=== PATIENT | female | born 1975 | race African-American/Black ===

== ENCOUNTER 2018-06-03 11:34 | Inpatient (IN) | payer OTHER ==
[2018-06-03 13:01] VITALS: BMI 21.6
--- NOTE | 2018-06-03 14:13 | HP ---
CIWA Score - CIWA Score Nausea/Vomitin-Mild Nausea/No Vomiting Muscle Tremors: 4-Moderate,w/Arms Extend Anxiety: 4-Mod. Anxious/Guarded Agitation: 4-Moderately Restless Paroxysmal Sweats: 1-Minimal Palms Moist Orientation: 0-Oriented Tacttile Disturbances: 0-None Auditory Disturbances: 0-None Visual Disturbances: 0-None Headache: 0-None Present CIWA-Ar Total Score: 14 Admission ROS BHS - HPI Chief Complaint: alcohol withdrawal sx Allergies/Adverse Reactions: Allergies Allergy/AdvReac Type Severity Reaction Status Date / Time No Known Allergies Allergy Verified 06/03/18 14:20 History of Present Illness: 43 years old female with long history of alcohol nicotine dependence has weight loss depression is admitted to detox Exam Limitations: No Limitations - Ebola screening Have you traveled outside of the country in the last 21 days: No (N) Have you had contact with anyone from an Ebola affected area: No Have you been sick,other than usual withdrawal symptoms: No Do you have a fever: No - Review of Systems Constitutional: Loss of Appetite, Changes in sleep, Unintentional Wgt. Loss, Unexplained wgt Loss EENT: reports: Blurred Vision (eye glasses) Respiratory: reports: No Symptoms reported Cardiac: reports: No Symptoms Reported GI: reports: Nausea, Poor Appetite, Poor Fluid Intake, Abdominal cramping : reports: No Symptoms Reported Musculoskeletal: reports: No Symptoms Reported Integumentary: reports: No Symptoms Reported Neuro: reports: Tremors Endocrine: reports: No Symptoms Reported Hematology: reports: No Symptoms Reported Psychiatric: reports: Judgement Intact, Orientated x3, Anxious, Depressed Other Systems: Reviewed and Negative Patient History - Patient Surgical History Past Surgical History: No - PPD History Previous Implant?: Yes Documented Results: Negative w/o proof Implanted On Prior R Admission?: No PPD to be Administered?: Yes - Reproductive History Patient is a Female of Child Bearing Age (11 -55 yrs old): Yes Last Menstrual Period: 05/20/18 Patient : No - Smoking Cessation Smoking history: Current every day smoker Have you smoked in the past 12 months: Yes Aproximately how many cigarettes per day: 10 Cigars Per Day: 0 Hx Chewing Tobacco Use: No Initiated information on smoking cessation: Yes 'Breaking Loose' booklet given: 06/03/18 - Substance & Tx. History Hx Alcohol Use: Yes Hx Substance Use: Yes Substance Use Type: Alcohol, Marijuana Hx Substance Use Treatment: No (1st detox) Family Disease History - Family Disease History Family Disease History: Diabetes: Grandparent Admission Physical Exam [facility] - Vital Signs Vital Signs: Vital Signs - 24 hr 06/03/18 12:59 Temperature 98.1 F Pulse Rate 84 Respiratory 20 Rate Blood Pressure 125/70 - Physical General Appearance: Yes: Appropriately Dressed, Mild Distress, Alcohol on Breath , Thin, Tremorous, Irritable, Sweating, Anxious HEENTM: Yes: Hearing grossly Normal, Normocephalic, Normal Voice Respiratory: Yes: Chest Non-Tender, Lungs Clear, Normal Breath Sounds, No Respiratory Distress, No Accessory Muscle Use Neck: Yes: Supple, Trachea in good position Breast: Yes: Breasts Symetrical, No Discharge Cardiology: Yes: Regular Rhythm, Regular Rate, S1, S2 Abdominal: Yes: Normal Bowel Sounds, Non Tender, Flat, Soft Genitourinary: Yes: Within Normal Limits Back: Yes: Normal Inspection Musculoskeletal: Yes: full range of Motion, Gait Steady, Back pain, Muscle Pain Extremities: Yes: Normal Inspection, Normal Range of Motion, Non-Tender, Tremors Neurological: Yes: Fully Oriented, Alert, Motor Strength 5/5, Normal Response, Depressed Affect Integumentary: Yes: Warm Lymphatic: Yes: Within Normal Limits - Diagnostic (1) Alcohol dependence with uncomplicated withdrawal Current Visit: Yes Status: Acute (2) Weight loss Current Visit: Yes Status: Acute (3) Depression (emotion) Current Visit: Yes Status: Suspected Qualifiers: Depression Type: dysthymia Qualified Code(s): F34.1 - Dysthymic disorder Cleared for Admission [facility] - Detox or Rehab [facility] Level of Care: Medically Managed Detox Regimen/Protocol: Librium [facility] Breath Alcohol Content Breath Alcohol Content: 0.044 Urine Pregancy Test - Result Urine Test Results: Negative- NO Line Present Urine Drug Screen - Control Is Test Valid: Yes - Results Drug Screen Negative: No Urine Drug Screen Results: THC-Marijuana
[2018-06-03] MEDS ORDERED: ACETAMINOPHEN 325 MG TABLET (FP) PO PRN (14:38)
[2018-06-03] MEDS ORDERED: P-EPHED 60MG/TRIPROLIDI 2.5MG TABLET PO PRN (14:38)
[2018-06-03] MEDS ORDERED: MAG HYDROX/AL HYDROX/SIMETH 30 ML UNIT-DOSE CUP PO PRN (14:38)
[2018-06-03] MEDS ORDERED: MAGNESIUM CITRATE 300 ML BOTTLE PO PRN (14:38)
[2018-06-03] MEDS ORDERED: LOPERAMIDE HCL 2 MG CAPSULE PO PRN (14:38)
[2018-06-03] MEDS ORDERED: MAGNESIUM HYDROX 2400MG/30ML ORAL SUSPENSION 30 ML CUP PO PRN (14:38)
[2018-06-03] MEDS ORDERED: chlordiazePOXIDE HCL 25 MG CAPSULE PO PRN (14:38)
[2018-06-03] MEDS ORDERED: MENTHOL/PHENOL 1 EACH UD MM PRN (14:38)
[2018-06-03] MEDS ORDERED: guaiFENesin/D-METHORPHAN HB 10 ML UNIT-DOSE CUPS PO PRN (14:38)
[2018-06-03] MEDS ORDERED: IBUPROFEN 400 MG TABLET (FP) PO PRN (14:38)
[2018-06-03] MEDS: chlordiazePOXIDE HCL 25 MG CAPSULE PO SCH ×2 (16:31→22:31)
[2018-06-03] MEDS: NICOTINE 14 MG/24 HOURS TOPICAL PATCH TD SCH (16:34)
[2018-06-03 17:31] LABS: URINE APPEARANCE CLEAR; URINE BILIRUBIN NEGATIVE (<2.0 mg/dL); URINE COLOR YELLOW; URINE GLUCOSE (UA) NEGATIVE (NEGATIVE); URINE KETONE TRACE (NEGATIVE); URINE LEUK ESTERASE NEGATIVE (NEGATIVE); URINE NITRITE NEGATIVE (NEGATIVE); URINE PROTEIN NEGATIVE (NEGATIVE); URINE UROBILINOGEN NEGATIVE mg/dL (0.2-1.0)
[2018-06-03] MEDS: THIAMINE HCL 100 MG TABLET (FP) PO SCH (22:31)
[2018-06-03] MEDS: MELATONIN 5 MG TABLETS PO PRN (22:32)
[2018-06-04] MEDS ORDERED: hydrOXYzine PAMOATE 50 MG CAPSULE (FP) PO PRN (01:36)
[2018-06-04] MEDS: chlordiazePOXIDE HCL 25 MG CAPSULE PO SCH ×4 (06:11→22:09)
[2018-06-04 09:50] LABS: ANION GAP 9 (8-16); BLOOD UREA NITROGEN 8 mg/dL (7-18); CHLORIDE 105 mmol/L (98-107); CO2 26 mmol/L (21-32); CREATININE 0.7 mg/dL (0.55-1.02); GLUCOSE,RANDOM 91 mg/dL (74-106); SGOT/AST 38 U/L (15-37); SGPT/ALT 29 U/L (12-78); SODIUM 140 mmol/L (136-145)
[2018-06-04 09:54] LABS: HEMATOCRIT 31.5 % (32.4-45.2); HEMOGLOBIN 10.2 GM/dL (10.7-15.3); MCH 26.1 pg (25.7-33.7); MCHC 32.4 g/dl (32.0-36.0); MEAN CELL VOLUME 80.7 fl (80-96); MEAN PLT VOLUME 8.6 fl (7.5-11.1); PLATELET COUNT 223 K/MM3 (134-434); RBC 3.91 M/mm3 (3.60-5.2); RDW 21.4 % (11.6-15.6); WHITE BLOOD COUNT 5.9 K/mm3 (4.0-10.0)
[2018-06-04 10:09] LABS: ALBUMIN 4.1 g/dl (3.4-5.0); ALK PHOS 58 U/L (45-117); BILIRUBIN,TOTAL 0.3 mg/dL (0.2-1.0); CALCIUM 9.2 mg/dL (8.5-10.1)
[2018-06-04] MEDS: PRENATAL VITAMINS W/ FOLIC ACID TABLET (FP) PO SCH (10:31)
[2018-06-04] MEDS: NICOTINE 14 MG/24 HOURS TOPICAL PATCH TD SCH (10:31)
--- NOTE | 2018-06-04 10:36 | PN ---
[facility] CIWA - CIWA Score Nausea/Vomitin-No Nausea/No Vomiting Muscle Tremors: 4-Moderate,w/Arms Extend Anxiety: 4-Mod. Anxious/Guarded Agitation: 4-Moderately Restless Paroxysmal Sweats: 1-Minimal Palms Moist Orientation: 0-Oriented Tacttile Disturbances: 0-None Auditory Disturbances: 0-None Visual Disturbances: 0-None Headache: 0-None Present CIWA-Ar Total Score: 13 BHS Progress Note (SOAP) Subjective: tremor sweat restlessness irritable anxiety Objective: 06/04/18 10:39 Vital Signs Temperature 97.9 F 06/04/18 09:24 Pulse Rate 79 06/04/18 09:24 Respiratory Rate 20 06/04/18 09:24 Blood Pressure 115/63 06/04/18 09:24 O2 Sat by Pulse Oximetry (%) Laboratory Last Values WBC 5.9 K/mm3 (4.0-10.0) 06/04/18 06:00 RBC 3.91 M/mm3 (3.60-5.2) 06/04/18 06:00 Hgb 10.2 GM/dL (10.7-15.3) L 06/04/18 06:00 Hct 31.5 % (32.4-45.2) L 06/04/18 06:00 MCV 80.7 fl (80-96) 06/04/18 06:00 MCH 26.1 pg (25.7-33.7) 06/04/18 06:00 MCHC 32.4 g/dl (32.0-36.0) 06/04/18 06:00 RDW 21.4 % (11.6-15.6) H 06/04/18 06:00 Plt Count 223 K/MM3 (134-434) 06/04/18 06:00 MPV 8.6 fl (7.5-11.1) 06/04/18 06:00 Sodium 140 mmol/L (136-145) 06/04/18 06:00 Potassium 4.0 mmol/L (3.5-5.1) 06/04/18 06:00 Chloride 105 mmol/L (98-107) 06/04/18 06:00 Carbon Dioxide 26 mmol/L (21-32) 06/04/18 06:00 Anion Gap 9 (8-16) 06/04/18 06:00 BUN 8 mg/dL (7-18) 06/04/18 06:00 Creatinine 0.7 mg/dL (0.55-1.02) 06/04/18 06:00 Creat Clearance w eGFR > 60 (>60) 06/04/18 06:00 Random Glucose 91 mg/dL (74-106) 06/04/18 06:00 Calcium 9.2 mg/dL (8.5-10.1) 06/04/18 06:00 Total Bilirubin 0.3 mg/dL (0.2-1.0) 06/04/18 06:00 AST 38 U/L (15-37) H 06/04/18 06:00 ALT 29 U/L (12-78) 06/04/18 06:00 Alkaline Phosphatase 58 U/L (45-117) 06/04/18 06:00 Total Protein 8.0 g/dl (6.4-8.2) 06/04/18 06:00 Albumin 4.1 g/dl (3.4-5.0) 06/04/18 06:00 Urine Color Yellow 06/03/18 16:02 Urine Appearance Clear 06/03/18 16:02 Urine pH 6.0 (5.0-8.0) 06/03/18 16:02 Ur Specific [place] 1.013 (1.001-1.035) 06/03/18 16:02 Urine Protein Negative (NEGATIVE) 06/03/18 16:02 Urine Glucose (UA) Negative (NEGATIVE) 06/03/18 16:02 Urine Ketones Trace (NEGATIVE) H 06/03/18 16:02 Urine Blood Negative (NEGATIVE) 06/03/18 16:02 Urine Nitrite Negative (NEGATIVE) 06/03/18 16:02 Urine Bilirubin Negative (<2.0 mg/dL) 06/03/18 16:02 Urine Urobilinogen Negative mg/dL (0.2-1.0) 06/03/18 16:02 Ur Leukocyte Esterase Negative (NEGATIVE) 06/03/18 16:02 HIV 1&2 Antibody Screen Negative 06/03/18 15:00 HIV P24 Antigen Negative 06/03/18 15:00 lab noted Assessment: 06/04/18 10:39 withdrawal sx Plan: continue detox
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
--- NOTE | 2018-06-04 13:58 | EKG ---
Test Reason : Blood Pressure : / mmHG Vent. Rate : 077 BPM Atrial Rate : 077 BPM P-R Int : 154 ms QRS Dur : 074 ms QT Int : 372 ms P-R-T Axes : 078 089 057 degrees QTc Int : 420 ms NORMAL SINUS RHYTHM WITH SINUS ARRHYTHMIA POSSIBLE LEFT ATRIAL ENLARGEMENT BORDERLINE ECG NO PREVIOUS ECGS AVAILABLE Confirmed by Piyush Mclean MD ([id number]) on 06/04/2018 1:57:36 PM Referred By: Confirmed By:Piyush Mclean MD
[2018-06-04] MEDS: MELATONIN 5 MG TABLETS PO PRN (22:09)
[2018-06-04] MEDS: MIRTAZAPINE 15 MG TABLET (FP) PO SCH (22:09)
[2018-06-04] MEDS: THIAMINE HCL 100 MG TABLET (FP) PO SCH (22:09)
[2018-06-05] MEDS: chlordiazePOXIDE HCL 25 MG CAPSULE PO SCH ×2 (06:24→10:56)
--- NOTE | 2018-06-05 09:53 | PN ---
[facility] CIWA - CIWA Score Nausea/Vomitin-No Nausea/No Vomiting Muscle Tremors: 4-Moderate,w/Arms Extend Anxiety: 2 Agitation: 3 Paroxysmal Sweats: 1-Minimal Palms Moist Orientation: 0-Oriented Tacttile Disturbances: 1-Very Mild Itch/Numbness Auditory Disturbances: 0-None Visual Disturbances: 0-None Headache: 0-None Present CIWA-Ar Total Score: 11 S Progress Note (SOAP) Subjective: sweat tremor restlessness trouble sleep at night Objective: 06/05/18 09:52 Vital Signs Temperature 98.1 F 06/05/18 07:36 Pulse Rate 65 06/05/18 07:36 Respiratory Rate 18 06/05/18 07:36 Blood Pressure 100/56 06/05/18 07:36 O2 Sat by Pulse Oximetry (%) Laboratory Last Values WBC 5.9 K/mm3 (4.0-10.0) 06/04/18 06:00 RBC 3.91 M/mm3 (3.60-5.2) 06/04/18 06:00 Hgb 10.2 GM/dL (10.7-15.3) L 06/04/18 06:00 Hct 31.5 % (32.4-45.2) L 06/04/18 06:00 MCV 80.7 fl (80-96) 06/04/18 06:00 MCH 26.1 pg (25.7-33.7) 06/04/18 06:00 MCHC 32.4 g/dl (32.0-36.0) 06/04/18 06:00 RDW 21.4 % (11.6-15.6) H 06/04/18 06:00 Plt Count 223 K/MM3 (134-434) 06/04/18 06:00 MPV 8.6 fl (7.5-11.1) 06/04/18 06:00 Sodium 140 mmol/L (136-145) 06/04/18 06:00 Potassium 4.0 mmol/L (3.5-5.1) 06/04/18 06:00 Chloride 105 mmol/L (98-107) 06/04/18 06:00 Carbon Dioxide 26 mmol/L (21-32) 06/04/18 06:00 Anion Gap 9 (8-16) 06/04/18 06:00 BUN 8 mg/dL (7-18) 06/04/18 06:00 Creatinine 0.7 mg/dL (0.55-1.02) 06/04/18 06:00 Creat Clearance w eGFR > 60 (>60) 06/04/18 06:00 Random Glucose 91 mg/dL (74-106) 06/04/18 06:00 Calcium 9.2 mg/dL (8.5-10.1) 06/04/18 06:00 Total Bilirubin 0.3 mg/dL (0.2-1.0) 06/04/18 06:00 AST 38 U/L (15-37) H 06/04/18 06:00 ALT 29 U/L (12-78) 06/04/18 06:00 Alkaline Phosphatase 58 U/L (45-117) 06/04/18 06:00 Total Protein 8.0 g/dl (6.4-8.2) 06/04/18 06:00 Albumin 4.1 g/dl (3.4-5.0) 06/04/18 06:00 Urine Color Yellow 06/03/18 16:02 Urine Appearance Clear 06/03/18 16:02 Urine pH 6.0 (5.0-8.0) 06/03/18 16:02 Ur Specific [place] 1.013 (1.001-1.035) 06/03/18 16:02 Urine Protein Negative (NEGATIVE) 06/03/18 16:02 Urine Glucose (UA) Negative (NEGATIVE) 06/03/18 16:02 Urine Ketones Trace (NEGATIVE) H 06/03/18 16:02 Urine Blood Negative (NEGATIVE) 06/03/18 16:02 Urine Nitrite Negative (NEGATIVE) 06/03/18 16:02 Urine Bilirubin Negative (<2.0 mg/dL) 06/03/18 16:02 Urine Urobilinogen Negative mg/dL (0.2-1.0) 06/03/18 16:02 Ur Leukocyte Esterase Negative (NEGATIVE) 06/03/18 16:02 RPR Titer Nonreactive (NONREACTIVE) 06/04/18 06:00 HIV 1&2 Antibody Screen Negative 06/03/18 15:00 HIV P24 Antigen Negative 06/03/18 15:00 labn oted Assessment: 06/05/18 09:53 withdrawal sx Plan: continue detox
[2018-06-05] MEDS: PRENATAL VITAMINS W/ FOLIC ACID TABLET (FP) PO SCH (10:55)
[2018-06-05] MEDS: NICOTINE 14 MG/24 HOURS TOPICAL PATCH TD SCH (10:56)
[2018-06-05] MEDS: PSYLLIUM 5.85 GM PACKET PO SCH (12:08)
[2018-06-05] MEDS: NICOTINE POLACRILEX 2 MG GUM BUC PRN ×2 (12:54→17:32)
[2018-06-05] MEDS: chlordiazePOXIDE 5 MG CAPSULE PO SCH ×2 (17:39→22:46)
[2018-06-05] MEDS: MIRTAZAPINE 15 MG TABLET (FP) PO SCH (22:46)
[2018-06-05] MEDS: THIAMINE HCL 100 MG TABLET (FP) PO SCH (22:47)
[2018-06-06] MEDS: chlordiazePOXIDE 5 MG CAPSULE PO SCH ×2 (06:00→10:35)
[2018-06-06] MEDS: PRENATAL VITAMINS W/ FOLIC ACID TABLET (FP) PO SCH (10:35)
[2018-06-06] MEDS: PSYLLIUM 5.85 GM PACKET PO SCH (10:35)
[2018-06-06] MEDS: NICOTINE 14 MG/24 HOURS TOPICAL PATCH TD SCH (10:36)
--- NOTE | 2018-06-06 10:58 | PN ---
BHS Progress Note (SOAP) Subjective: feeling better less sweat no tremor sleep better at night Objective: 06/06/18 10:57 Vital Signs Temperature 97.7 F 06/06/18 10:55 Pulse Rate 94 H 06/06/18 10:55 Respiratory Rate 18 06/06/18 10:55 Blood Pressure 110/69 06/06/18 10:55 O2 Sat by Pulse Oximetry (%) Laboratory Last Values WBC 5.9 K/mm3 (4.0-10.0) 06/04/18 06:00 RBC 3.91 M/mm3 (3.60-5.2) 06/04/18 06:00 Hgb 10.2 GM/dL (10.7-15.3) L 06/04/18 06:00 Hct 31.5 % (32.4-45.2) L 06/04/18 06:00 MCV 80.7 fl (80-96) 06/04/18 06:00 MCH 26.1 pg (25.7-33.7) 06/04/18 06:00 MCHC 32.4 g/dl (32.0-36.0) 06/04/18 06:00 RDW 21.4 % (11.6-15.6) H 06/04/18 06:00 Plt Count 223 K/MM3 (134-434) 06/04/18 06:00 MPV 8.6 fl (7.5-11.1) 06/04/18 06:00 Sodium 140 mmol/L (136-145) 06/04/18 06:00 Potassium 4.0 mmol/L (3.5-5.1) 06/04/18 06:00 Chloride 105 mmol/L (98-107) 06/04/18 06:00 Carbon Dioxide 26 mmol/L (21-32) 06/04/18 06:00 Anion Gap 9 (8-16) 06/04/18 06:00 BUN 8 mg/dL (7-18) 06/04/18 06:00 Creatinine 0.7 mg/dL (0.55-1.02) 06/04/18 06:00 Creat Clearance w eGFR > 60 (>60) 06/04/18 06:00 Random Glucose 91 mg/dL (74-106) 06/04/18 06:00 Calcium 9.2 mg/dL (8.5-10.1) 06/04/18 06:00 Total Bilirubin 0.3 mg/dL (0.2-1.0) 06/04/18 06:00 AST 38 U/L (15-37) H 06/04/18 06:00 ALT 29 U/L (12-78) 06/04/18 06:00 Alkaline Phosphatase 58 U/L (45-117) 06/04/18 06:00 Total Protein 8.0 g/dl (6.4-8.2) 06/04/18 06:00 Albumin 4.1 g/dl (3.4-5.0) 06/04/18 06:00 Urine Color Yellow 06/03/18 16:02 Urine Appearance Clear 06/03/18 16:02 Urine pH 6.0 (5.0-8.0) 06/03/18 16:02 Ur Specific [place] 1.013 (1.001-1.035) 06/03/18 16:02 Urine Protein Negative (NEGATIVE) 06/03/18 16:02 Urine Glucose (UA) Negative (NEGATIVE) 06/03/18 16:02 Urine Ketones Trace (NEGATIVE) H 06/03/18 16:02 Urine Blood Negative (NEGATIVE) 06/03/18 16:02 Urine Nitrite Negative (NEGATIVE) 06/03/18 16:02 Urine Bilirubin Negative (<2.0 mg/dL) 06/03/18 16:02 Urine Urobilinogen Negative mg/dL (0.2-1.0) 06/03/18 16:02 Ur Leukocyte Esterase Negative (NEGATIVE) 06/03/18 16:02 RPR Titer Nonreactive (NONREACTIVE) 06/04/18 06:00 HIV 1&2 Antibody Screen Negative 06/03/18 15:00 HIV P24 Antigen Negative 06/03/18 15:00 lab noted Assessment: 06/06/18 10:57 mild withdrawal sx Plan: medically supervised detox
[2018-06-06] MEDS: NICOTINE POLACRILEX 2 MG GUM BUC PRN (15:39)
[2018-06-06] MEDS: chlordiazePOXIDE HCL 10 MG CAPSULE PO SCH ×2 (17:26→22:18)
[2018-06-06] MEDS: MELATONIN 5 MG TABLETS PO PRN (22:18)
[2018-06-06] MEDS: THIAMINE HCL 100 MG TABLET (FP) PO SCH (22:18)
[2018-06-06] MEDS: MIRTAZAPINE 15 MG TABLET (FP) PO SCH (22:18)
[2018-06-07] MEDS: chlordiazePOXIDE HCL 10 MG CAPSULE PO SCH ×2 (05:38→10:55)
[2018-06-07 06:18] VITALS: TEMP 97.7
[2018-06-07 09:42] VITALS: BP 117/70; PULSE 79
[2018-06-07] MEDS: PSYLLIUM 5.85 GM PACKET PO SCH (10:54)
[2018-06-07] MEDS: PRENATAL VITAMINS W/ FOLIC ACID TABLET (FP) PO SCH (10:54)
[2018-06-07] MEDS: NICOTINE 14 MG/24 HOURS TOPICAL PATCH TD SCH (10:55)
[2018-06-07] MEDS: NICOTINE POLACRILEX 2 MG GUM BUC PRN (11:00)
--- NOTE | 2018-06-07 15:34 | PN ---
BHS Progress Note (SOAP) Subjective: pt competed detox protocol Objective: 06/07/18 15:31 Vital Signs - 24 hr 06/06/18 06/06/18 06/07/18 17:45 22:12 00:30 Temperature 98.2 F Pulse Rate 91 H 88 Respiratory 18 18 18 Rate Blood Pressure 110/75 128/71 06/07/18 06/07/18 06/07/18 03:30 06:14 09:41 Temperature 97.7 F 97.7 F Pulse Rate 75 79 Respiratory 16 18 20 Rate Blood Pressure 101/63 117/70 Laboratory Tests 06/03/18 06/03/18 06/04/18 15:00 16:02 06:00 WBC 5.9 RBC 3.91 Hgb 10.2 L Hct 31.5 L MCV 80.7 MCH 26.1 MCHC 32.4 RDW 21.4 H Plt Count 223 MPV 8.6 Sodium Potassium Chloride Carbon Dioxide Anion Gap BUN Creatinine Creat Clearance w eGFR Random Glucose Calcium Total Bilirubin AST ALT Alkaline Phosphatase Total Protein Albumin Urine Color Yellow Urine Appearance Clear Urine pH 6.0 Ur Specific [place] 1.013 Urine Protein Negative Urine Glucose (UA) Negative Urine Ketones Trace H Urine Blood Negative Urine Nitrite Negative Urine Bilirubin Negative Urine Urobilinogen Negative Ur Leukocyte Esterase Negative RPR Titer HIV 1&2 Antibody Screen Negative HIV P24 Antigen Negative 06/04/18 06/04/18 06:00 06:00 WBC RBC Hgb Hct MCV MCH MCHC RDW Plt Count MPV Sodium 140 Potassium 4.0 Chloride 105 Carbon Dioxide 26 Anion Gap 9 BUN 8 Creatinine 0.7 Creat Clearance w eGFR > 60 Random Glucose 91 Calcium 9.2 Total Bilirubin 0.3 AST 38 H ALT 29 Alkaline Phosphatase 58 Total Protein 8.0 Albumin 4.1 Urine Color Urine Appearance Urine pH Ur Specific [place] Urine Protein Urine Glucose (UA) Urine Ketones Urine Blood Urine Nitrite Urine Bilirubin Urine Urobilinogen Ur Leukocyte Esterase RPR Titer Nonreactive HIV 1&2 Antibody Screen HIV P24 Antigen anemia nl VSS Assessment: 06/07/18 15:31 43 years old female with long history of alcohol nicotine dependence has weight loss depression is admitted to alcohol detox Plan: alcohol detox completed
--- NOTE | 2018-06-07 15:34 | DS ---
[facility] Detox Discharge Summary Admission Date: 06/03/18 Discharge Date: 06/07/18 - History Present History: Alcohol Dependence - Physical Exam Results Vital Signs: Vital Signs Temperature 97.7 F 06/07/18 09:41 Pulse Rate 79 06/07/18 09:41 Respiratory Rate 20 06/07/18 09:41 Blood Pressure 117/70 06/07/18 09:41 O2 Sat by Pulse Oximetry (%) Pertinent Admission Physical Exam Findings: 43 years old female with long history of alcohol nicotine dependence has weight loss depression is admitted to detox - Treatment Hospital Course: Detox Protocol Followed - Medication Discharge Medications: Ambulatory Orders Mirtazapine [Remeron -] 15 mg PO HS #30 tablet 06/07/18 - AMA Did Patient Leave Against Medical Advice: No
== END 2018-06-07 11:44 | disposition home or self-care (01) | DRG 775 ==
LOC: YASAS 11:34 → Y6N 14:59
PROVIDERS: ADMIT Surgery; ATTEND Surgery
PROC: HZ2ZZZZ Detoxification Services for Substance Abuse Treatment (ICD-10-PCS; principal; 2018-06-03)
DX: F10.230 Alcohol dependence with withdrawal, uncomplicated (principal); F34.1 Dysthymic disorder; F33.9 Major depressive disorder, recurrent, unspecified; F19.24 Other psychoactive substance dependence with psychoactive substance-induced mood disorder; G47.00 Insomnia, unspecified; R63.4 Abnormal weight loss; Z68.21 Body mass index [BMI] 21.0-21.9, adult
CPT/HCPCS: 36415; 80053; 81003; 85027; 86593; 87389; 93005; 93010

== ENCOUNTER 2023-04-02 17:39 | Inpatient (IN) | payer OTHER ==
[2023-04-02 19:34] VITALS: BMI 21.1
[2023-04-02] MEDS ORDERED: DICYCLOMINE HCL 10 MG CAPSULE PO PRN (21:54)
[2023-04-02] MEDS ORDERED: ACETAMINOPHEN 325 MG TABLET (FP) PO PRN ×2 (21:54)
[2023-04-02] MEDS ORDERED: LOPERAMIDE HCL 2 MG CAPSULE PO PRN (21:54)
[2023-04-02] MEDS ORDERED: P-EPHED 60MG/TRIPROLIDI 2.5MG TABLET PO PRN (21:54)
[2023-04-02] MEDS ORDERED: BENZOCAINE/MENTHOL (CHLORASEPTIC ) LOZENGE MM PRN (21:54)
[2023-04-02] MEDS ORDERED: IBUPROFEN 600 MG TABLET (FP) PO PRN (21:54)
[2023-04-02] MEDS ORDERED: guaiFENesin 600 MG TABLET.ER (FP) PO PRN (21:54)
[2023-04-02] MEDS ORDERED: BISMUTH SUBSALICYLATE 524 MG/30 ML PO PRN (21:54)
[2023-04-02] MEDS ORDERED: BENZONATATE 200 MG CAPSULE PO PRN (21:54)
[2023-04-02] MEDS ORDERED: IBUPROFEN 400 MG TABLET (FP) PO PRN (21:54)
[2023-04-02] MEDS ORDERED: MAGNESIUM HYDROX 2400MG/30ML ORAL SUSPENSION 30 ML CUP PO PRN (21:54)
[2023-04-02] MEDS ORDERED: POLYETHYLENE GLYCOL (HEALTHYLAX) 3350 17 GM PACKET PO PRN (21:54)
[2023-04-02] MEDS ORDERED: ONDANSETRON *ODT* 4 MG TABLET SL PRN (21:54)
[2023-04-02] MEDS ORDERED: MAG HYDROX/AL HYDROX/SIMETH 30 ML UNIT-DOSE CUP PO PRN (21:54)
[2023-04-02] MEDS ORDERED: MELATONIN 5 MG TABLETS PO SCH (22:00)
[2023-04-02] MEDS: THIAMINE HCL 100 MG TABLET (FP) PO SCH (22:34)
[2023-04-02] MEDS: chlordiazePOXIDE HCL 25 MG CAPSULE PO SCH (22:34)
[2023-04-03] MEDS ORDERED: MELATONIN 5 MG TABLETS PO ONE (01:12)
[2023-04-03] MEDS: chlordiazePOXIDE HCL 25 MG CAPSULE PO SCH ×4 (05:45→22:19)
[2023-04-03] MEDS: PRENATAL VITAMINS W/ FOLIC ACID TABLET (FP) PO SCH (10:18)
[2023-04-03] MEDS: chlordiazePOXIDE HCL 25 MG CAPSULE PO PRN ×2 (10:39→13:52)
[2023-04-03 15:43] LABS: HEMOGLOBIN 11.9 GM/dL (10.7-15.3); MCH 31.4 pg (25.7-33.7); MEAN CELL VOLUME 92.3 fl (80-96); MEAN PLT VOLUME 8.5 fl (7.5-11.1); PLATELET COUNT 191 10^3/uL (134-434); RBC 3.79 M/mm3 (3.60-5.2); RDW 16.7 % (11.6-15.6); WHITE BLOOD COUNT 2.7 K/mm3 (4.0-10.0)
[2023-04-03 15:50] LABS: CALCIUM 9.8 mg/dL (8.5-10.1); POTASSIUM 4.1 mmol/L (3.5-5.1)
[2023-04-03 15:51] LABS: ALBUMIN 3.7 g/dl (3.4-5.0); BLOOD UREA NITROGEN 10.5 mg/dL (7-18)
[2023-04-03 15:55] LABS: CREATININE 0.6 mg/dL (0.55-1.3)
[2023-04-03 15:56] LABS: BILIRUBIN,TOTAL 0.5 mg/dL (0.2-1); TOT PROT 7.3 g/dl (6.4-8.2)
[2023-04-03] MEDS: MELATONIN 5 MG TABLETS PO SCH (22:18)
[2023-04-03] MEDS: THIAMINE HCL 100 MG TABLET (FP) PO SCH (22:18)
[2023-04-04] MEDS: chlordiazePOXIDE HCL 25 MG CAPSULE PO PRN (01:45)
[2023-04-04] MEDS: chlordiazePOXIDE HCL 25 MG CAPSULE PO SCH ×4 (05:38→22:07)
[2023-04-04] MEDS: PRENATAL VITAMINS W/ FOLIC ACID TABLET (FP) PO SCH (10:16)
[2023-04-04] MEDS: THIAMINE HCL 100 MG TABLET (FP) PO SCH (22:07)
[2023-04-04] MEDS: MELATONIN 5 MG TABLETS PO SCH (22:07)
[2023-04-05] MEDS ORDERED: chlordiazePOXIDE HCL 10 MG CAPSULE PO PRN
[2023-04-05] MEDS: chlordiazePOXIDE HCL 10 MG CAPSULE PO SCH ×4 (05:18→22:04)
[2023-04-05] MEDS: PRENATAL VITAMINS W/ FOLIC ACID TABLET (FP) PO SCH (10:15)
[2023-04-05] MEDS: MELATONIN 5 MG TABLETS PO SCH (22:03)
[2023-04-05] MEDS: THIAMINE HCL 100 MG TABLET (FP) PO SCH (22:04)
[2023-04-06] MEDS ORDERED: MELATONIN 5 MG TABLETS PO ONE (01:12)
[2023-04-06] MEDS ORDERED: chlordiazePOXIDE HCL 10 MG CAPSULE PO ONE (05:00)
[2023-04-06] MEDS ORDERED: chlordiazePOXIDE HCL 10 MG CAPSULE PO SCH (05:00)
[2023-04-06 07:00] VITALS: PULSE 74
[2023-04-06 09:40] VITALS: BP 114/78; RESP 16; TEMP 97.3
[2023-04-06] MEDS: PRENATAL VITAMINS W/ FOLIC ACID TABLET (FP) PO SCH (10:09)
[2023-04-07] MEDS ORDERED: chlordiazePOXIDE HCL 10 MG CAPSULE PO ONE (05:00)
== END 2023-04-06 11:38 | disposition home or self-care (01) | DRG 775 ==
LOC: YASAS 17:39 → Y6N 22:14
PROVIDERS: ADMIT Allergy & Immunology; ATTEND Surgery
PROC: HZ2ZZZZ Detoxification Services for Substance Abuse Treatment (ICD-10-PCS; principal; 2023-04-02)
DX: F10.230 Alcohol dependence with withdrawal, uncomplicated (principal); F17.210 Nicotine dependence, cigarettes, uncomplicated; F19.282 Other psychoactive substance dependence with psychoactive substance-induced sleep disorder; F19.24 Other psychoactive substance dependence with psychoactive substance-induced mood disorder; F39 Unspecified mood [affective] disorder; F41.9 Anxiety disorder, unspecified; G47.00 Insomnia, unspecified; Z62.810 Personal history of physical and sexual abuse in childhood; Z91.410 Personal history of adult physical and sexual abuse; Z28.310 Unvaccinated for COVID-19; Z28.9 Immunization not carried out for unspecified reason
CPT/HCPCS: 36415; 80053; 81025; 85027; 86780; C9803-CS; U0003; U0005